=== PATIENT | male | born 1970 | race Caucasian/White ===

== ENCOUNTER 2022-07-13 12:39 | Emergency (ER) | payer OTHER, BC ==
[~2022-07-13] VITALS: Ht 170.2 cm; Wt 86.2 kg
[2022-07-13 12:40] VITALS: BP 130/84
[2022-07-13] MEDS ORDERED: IBUPROFEN 600 MG TAB PO ONE (13:40)
[2022-07-13] MEDS ORDERED: ONDANSETRON 4 MG ODT PO ONE (13:40)
[2022-07-13] MEDS ORDERED: ONDANSETRON 4 MG TAB ONE (14:49)
[2022-07-13] MEDS ORDERED: IBUPROFEN 600 MG TAB ONE (14:49)
[2022-07-13] MEDS ORDERED: NAPR-54 PO (16:09)
[2022-07-13] MEDS ORDERED: ONDA-188 PO (16:09)
--- NOTE | 2022-07-13 16:32 | NUR ---
Patient discharged with v/s stable. Written and verbal after care instructions given and explained. Patient alert, oriented and verbalized understanding of instructions. Ambulatory with steady gait. All questions addressed prior to discharge. ID band removed. Patient advised to follow up with PMD. Rx of MOTRIN,ZOFRAN given. Patient educated on indication of medication including possible reaction and side effects. Opportunity to ask questions provided and answered.
== END 2022-07-13 16:31 | disposition home or self-care (01) ==
LOC: MED 12:39
DX: S40.012A Contusion of left shoulder, initial encounter (principal); R51.9 Headache, unspecified; I10 Essential (primary) hypertension; E11.9 Type 2 diabetes mellitus without complications; E03.9 Hypothyroidism, unspecified; Z79.4 Long term (current) use of insulin; Z79.899 Other long term (current) drug therapy; V49.88XA Car occupant (driver) (passenger) injured in other specified transport accidents, initial encounter; Y93.89 Activity, other specified; Y92.89 Other specified places as the place of occurrence of the external cause; Y99.8 Other external cause status
CPT/HCPCS: 99283; Q0162